=== PATIENT | male | born 1960 | race African-American/Black ===

== ENCOUNTER → 2021-06-16 | Day surgery (SDC) | payer OTHER ==
[~2021-06-16] MED LIST: BUPIVACAINE MPF 0.25% 10 ML VIAL. ONE; DEXAMETHASONE SOD PHOS 10 MG/ML VIAL. ONE; HYDR-2155 PO; IOHEXOL 300 MG/ML 50 ML VIAL. ONE; LIDO1ADH63 TP; LIDOCAINE 1% PF 30 ML VIAL. ONE
[2021-06-16 14:53] VITALS: BP 175/122
== END ==
LOC: SURG 14:06
PROVIDERS: ATTEND Anesthesiology
DX: M54.16 Radiculopathy, lumbar region (principal); M47.816 Spondylosis without myelopathy or radiculopathy, lumbar region; I10 Essential (primary) hypertension; J44.9 Chronic obstructive pulmonary disease, unspecified; F32.9 Major depressive disorder, single episode, unspecified; F43.10 Post-traumatic stress disorder, unspecified; Z86.19 Personal history of other infectious and parasitic diseases; Z79.899 Other long term (current) drug therapy; Z98.890 Other specified postprocedural states
CPT/HCPCS: 64483; 64484; J1100; J3490; Q9967

== ENCOUNTER 2021-07-01 09:12 | Emergency (ER) | payer OTHER ==
[~2021-07-01] VITALS: Ht 167.6 cm; Wt 82.0 kg
[2021-07-01 09:15] VITALS: BP 140/87
[2021-07-01] MEDS ORDERED: KETOROLAC 60 MG/2 ML VIAL. IM ONE (09:30)
--- NOTE | 2021-07-01 09:44 | RAD ---
EXAM: LUMBAR SPINE 3 VIEWS. HISTORY: Bilateral lower extremity radiculopathy. COMPARISON: None. FINDINGS: The L5 segment is mostly sacralized bilaterally. There appears to be a diminutive disc at L 5-S1. There is grade 1 anterolisthesis at L4-5 from facet osteoarthritis. Degenerative disc disease i s moderate at L4-5 and mild at L3-4. Vertebral body heights are maintained, and no fractures are iden tified. There is a mild dextrocurvature. Changes of mesh repair of the anterior abdominal wall are noted. There is an anastomotic suture line in the midline pelvis. IMPRESSION: 1. Sacralization of the L5 segment. Under this convention, there is grade 1 anterolisthesis and moder ate degenerative disc disease at L4-5. Electronically signed by: Wilner Leos MD (07/01/2021 9:42 AM) [id number]
[2021-07-01] MEDS ORDERED: LIDOCAINE (700MG/PATCH) PATCH. TD ONE (10:00)
[2021-07-01] MEDS ORDERED: LIDO1ADH63 TP (10:04)
[2021-07-01] MEDS ORDERED: HYDR-2155 PO (10:04)
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
[2021-07-01] MEDS ORDERED: PATCH REMOVAL. MC SCH (21:00)
[2021-07-02] MEDS ORDERED: HYDR-2155 PO (15:20)
== END 2021-07-01 10:13 | disposition home or self-care (01) ==
LOC: ER 09:12
DX: M54.42 Lumbago with sciatica, left side (principal); M54.41 Lumbago with sciatica, right side
CPT/HCPCS: 72100; 96372; 99283; J1885